=== PATIENT | male | born 1985 | race Hispanic/Latino ===

== ENCOUNTER 2019-03-20 17:27 | Observation (INO) | payer BC ==
[2019-03-20] MEDS ORDERED: FENTANYL CITR 100 MCG/2 ML ONE ×2 (19:50→21:35)
[2019-03-20] MEDS ORDERED: ONDANSETRON 4 MG/2 ML VIAL ONE (19:50)
[2019-03-20 19:57] LABS: Protime INR 1.06
--- NOTE | 2019-03-20 20:12 | RAD REPORT ---
EXAM DESCRIPTION: CT - Head Brain Wo Cont - 03/20/2019 7:50 pm CLINICAL HISTORY: Persistent headache, photophobia COMPARISON: None. TECHNIQUE: Axial 5 mm thick images of the head were obtained without IV contrast. All CT scans are performed using dose optimization technique as appropriate and may include automated exposure control or mA/KV adjustment according to patient size. FINDINGS: No intracranial hemorrhage, mass, edema or shift of mid-line structures. No acute infarcti on changes seen. No abnormal extra-axial fluid collections. Ventricles are normal. Mastoid air cells are clear. No acute sinus finding. No acute bony findings. IMPRESSION: Negative non-contrast CT head examination for acute or significant finding.
[2019-03-20 20:16] LABS: ALT/SGPT 37 U/L (12-78); AST/SGOT 15 U/L (15-37); Albumin 4.3 g/dL (3.4-5.0); Alkaline Phosphatase 69 U/L (45-117); BUN Blood Urea Nitrogen 13 mg/dL (7-18); Bicarbonate 25 mmol/L (21-32); Bilirubin Direct < 0.1 mg/dL (0-0.2); Bilirubin Total 0.3 mg/dL (0.2-1.0); Glucose Level 91 mg/dL (74-106); Protein, Total 8.4 g/dL (6.4-8.2); Sodium Level 139 mmol/L (136-145)
[2019-03-20] MEDS ORDERED: PROMETHAZINE 25 MG/ML VIAL ONE (20:33)
[2019-03-20] MEDS ORDERED: NA CHLORIDE 0.9% 50 ML IV ONE (20:33)
[2019-03-20] MEDS ORDERED: NA CHLORIDE 0.9% 1,000 ML ONE (20:55)
[2019-03-20 21:59] LABS: Appearance SLT. TURBID (CLEAR); Body Fluid Source CSF; Color of fluid Pink (COLORLESS); Fluid Total Volume 9 ml
[2019-03-20 22:05] LABS: CSF Glucose 54 mg/dL (40-70)
[2019-03-20 22:21] LABS: Body Fluid WBC 38 /mm^3
[2019-03-20 22:45] LABS: Appearance CLEAR (CLEAR); Body Fluid Source CSF; Color of fluid Colorless (COLORLESS)
[2019-03-20 22:54] LABS: Body Fluid WBC 36 /mm^3
--- NOTE | 2019-03-20 23:22 | EDPHYS ---
Physician Documentation [facility] Name: Miguel Angel Estes Age: 33 yrs Sex: Male : 1985 Arrival Date: 03/20/2019 Time: 17:28 Bed 28 Private MD: ED Physician Lincoln Plasencia HPI: 03/20 19:29 This 33 yrs old Male presents to ER via Ambulatory with complaints of Headache.wa 19:29 The patient complains of pain to the generalized. The patient describes the headache as wa constant, throbbing, unrelenting, sudden onset. Onset: The symptoms/episode began/occurred 3 day(s) ago. Associated signs and symptoms: Pertinent positives: dizziness, fever, of the diffuse, malaise, nausea, neck stiffness, Photophobia vomiting, weakness, Pertinent negatives: paresthesias, vision loss. Severity of symptoms: At its worst the pain was severe, in the emergency department the pain is actually worse, markedly. Headache History: Denies prior headaches. The symptoms are alleviated by nothing. the symptoms are aggravated by lights. The patient has not experienced similar symptoms in the past. The patient has not recently seen a physician. sudden onset PANDEY Thursday after work. assoc with vomiting, photophobia and neck discomfort. denies h/o same in the past. . Historical: - Allergies: 17:56 No Known Allergies; hb - Home Meds: 17:56 None [Active]; hb - PMHx: 17:56 None; hb - PSHx: 17:56 None; hb - Immunization history:: Adult Immunizations up to date. - Social history:: Smoking status: Patient uses tobacco products, smokes one-half pack cigarettes per day. - Ebola Screening: : No symptoms or risks identified at this time. - Family history:: not pertinent. - Hospitalizations: : No recent hospitalization is reported. ROS: 19:32 Eyes: Negative for injury, pain, redness, and discharge, ENT: Negative for injury, wa pain, and discharge, Cardiovascular: Negative for chest pain, palpitations, and edema, Respiratory: Negative for shortness of breath, cough, wheezing, and pleuritic chest pain, Back: Negative for injury and pain, : Negative for injury, bleeding, discharge, and swelling, MS/Extremity: Negative for injury and deformity, Skin: Negative for injury, rash, and discoloration. 19:32 Constitutional: Positive for chills, fever, malaise. 19:32 Neck: Positive for pain at rest, Negative for injury or acute deformity, mass. 19:32 Abdomen/GI: Positive for nausea and vomiting, Negative for abdominal pain. 19:32 Neuro: Positive for dizziness, headache, visual changes. 19:32 All other systems are negative. Exam: 19:33 Head/Face: Normocephalic, atraumatic. Eyes: Pupils equal round and reactive to light, wa extra-ocular motions intact. Lids and lashes normal. Conjunctiva and sclera are non-icteric and not injected. Cornea within normal limits. Periorbital areas with no swelling, redness, or edema. ENT: Nares patent. No nasal discharge, no septal abnormalities noted. Tympanic membranes are normal and external auditory canals are clear. Oropharynx with no redness, swelling, or masses, exudates, or evidence of obstruction, uvula midline. Mucous membranes moist. Neck: Trachea midline, no thyromegaly or masses palpated, and no cervical lymphadenopathy. Supple, full range of motion without nuchal rigidity, or vertebral point tenderness. No Meningismus. Cardiovascular: Regular rate and rhythm with a normal S1 and S2. No gallops, murmurs, or rubs. Normal PMI, no JVD. No pulse deficits. Respiratory: Lungs have equal breath sounds bilaterally, clear to auscultation and percussion. No rales, rhonchi or wheezes noted. No increased work of breathing, no retractions or nasal flaring. Abdomen/GI: Soft, non-tender, with normal bowel sounds. No distension or tympany. No guarding or rebound. No evidence of tenderness throughout. Back: No spinal tenderness. No costovertebral tenderness. Full range of motion. Skin: Warm, dry with normal turgor. Normal color with no rashes, no lesions, and no evidence of cellulitis. MS/ Extremity: Pulses equal, no cyanosis. Neurovascular intact. Full, normal range of motion. 19:33 Constitutional: The patient appears noted in discomfort. vomiting 19:33 Neuro: Orientation: is normal, Mentation: is normal, Cranial nerves: grossly normal, Motor: is normal, grossly nml neuro. exam difficult at best as pt noted discomfort and as such with decrease corporation . Vital Signs: 17:56 BP 179 / 101; Pulse 68; Resp 16; Temp 98.9; Pulse Ox 99% on R/A; Weight 122 kg; Height hb 5 ft. 7 in. (170.18 cm); Pain 9/10; 19:10 BP 145 / 98; Pulse 70; Resp 18; Pulse Ox 97% ; ea 20:11 BP 136 / 99; Pulse 58; Resp 18; Pulse Ox 99% ; ea 20:45 BP 135 / 96; Pulse 58; Resp 19 S; Pulse Ox 98% ; jp3 21:30 BP 129 / 92; Pulse 73; Resp 20; Pulse Ox 95% ; rv 22:15 BP 118 / 98; Pulse 59; Resp 20; Pulse Ox 99% ; rv 23:00 BP 128 / 92; Pulse 59; Resp 20; Temp 98.4; Pulse Ox 99% ; rv 23:45 BP 133 / 100; Pulse 63; Resp 18; Pulse Ox 97% ; rv 03/21 01:00 BP 121 / 87; Pulse 66; Resp 19; Temp 98.1; Pulse Ox 97% ; rv 03/20 17:56 Body Mass Index 42.13 (122.00 kg, 170.18 cm) hb Procedures: 03/20 21:43 Lumbar Puncture: Patient placed in sitting position. Prepped with Betadine. Draped wa using sterile technique. Collected 25 ml's of clear fluid. Sample sent to lab. Puncture site dressed with band aid, Patient tolerated well. MDM: 19:03 Patient medically screened. wa 19:36 Differential diagnosis: intracerebral hemorrhage, meningitis, meningoencephalitis, wa migraine, subarachnoid bleed, tension headache. Special discussion: worrisome PANDEY presentation in apt with no h/o. needs r/o acute intracranial process such as mass, bleed, infection. 21:40 Data reviewed: vital signs, nurses notes, lab test result(s), radiologic studies. Test wa interpretation: by ED physician or midlevel provider: labs noted wnl. UA pending. Head CT noted nml. Response to treatment: improved initially with IV fentanyl. c/o nausea. phenergan administered with relief. PANDEY returned. another dose fentanyl given right prior to LP. tolerated LP well. pt obese. had to sit up as such inaccurate pressure reads. CSF fluid noted blood-tinged initially but cleared to colorless immediately. will monitor and await results. 23:16 Test interpretation: by ED physician or midlevel provider: CSF noted with nml glucose. de elevated wbc at 38 with lymphocytic predominance. . Physician consultation: Keri Thorpe MD was called at 23:19. ED course: pt still requiring pain meds intermittently. note acute meningitis with lymphocytic predominance. possibly of viral etiology. will given 1st dose of abx however. consider viral PCR. acyclovir?. 03/20 19:28 Order name: UDS 03/20 19:28 Order name: Basic Metabolic Panel de 03/20 19:28 Order name: Hepatic Function 03/20 19:28 Order name: Protime (+inr) de 03/20 19:28 Order name: CSF Bacterial Antigens (tube 1); Complete Time: 22:53 de 03/20 19:28 Order name: Csf Culture de 03/20 19:28 Order name: Fluid Cell Count,Body; Complete Time: 23:02 de 03/20 19:28 Order name: Spinal Fluid Profile; Complete Time: 22:53 de 03/20 19:30 Order name: Urine Drug Screen; Complete Time: 00:54 EDVT 03/20 19:31 Order name: Basic Metabolic Panel; Complete Time: 20:31 EDMS 03/20 19:31 Order name: Liver (Hepatic) Function; Complete Time: 20:30 EDVT 03/20 19:31 Order name: Protime (+INR); Complete Time: 20:30 EDVT 03/20 22:57 Order name: CSF Total Protein; Complete Time: 23:26 EDVT 03/20 23:58 Order name: Urine Dipstick--Ancillary (enter results) [facility] 03/20 19:28 Order name: CT Head Brain wo Cont; Complete Time: 20:30 de 03/20 19:28 Order name: Cardiac monitoring; Complete Time: 20:08 de 03/20 19:28 Order name: IV Saline Lock; Complete Time: 19:51 de 03/20 19:28 Order name: Labs collected and sent; Complete Time: 20:08 de 03/21 00:00 Order name: Urine Microscopic Only; Complete Time: 00:54 cm6 03/21 00:32 Order name: Regular EDMS 03/21 00:54 Order name: CBC with Diff de 03/20 19:28 Order name: NPO; Complete Time: 20:08 03/20 19:28 Order name: O2 Sat Monitoring; Complete Time: 19:51 de 03/20 19:28 Order name: Urine Dipstick-Ancillary (obtain specimen); Complete Time: 00:06 03/20 19:28 Order name: LP Consents; Complete Time: 19:51 de 03/20 19:28 Order name: LP Setup; Complete Time: 19:51 de Administered Medications: 10/11 23:50 Drug: Acyclovir 1000 mg Route: IVPB; Site: right antecubital; rv 03/20 19:38 Drug: fentaNYL (PF) 75 mcg Route: IVP; Site: left antecubital; rv 21:52 Follow up: Response: Pain is decreased rv 19:38 Drug: Zofran 4 mg Route: IVP; Site: left antecubital; rv 21:52 Follow up: Response: No adverse reaction rv 20:29 Drug: Phenergan 12.5 mg Route: IVP; Site: left antecubital; ea 21:52 Follow up: Response: No adverse reaction rv 20:40 Drug: NS 0.9% 1000 ml Route: IV; Rate: 1 bolus; Site: left antecubital; rv 21:53 Follow up: IV Status: Completed infusion; IV Intake: 1000ml rv 21:30 Drug: fentaNYL (PF) 75 mcg Route: IVP; Site: left antecubital; rv 22:00 Follow up: Response: Pain is decreased rv 22:15 Drug: Rocephin - (cefTRIAXone) 2 grams Route: IVPB; Infused Over: 30 mins; Site: left rv antecubital; 23:32 Follow up: IV Status: Completed infusion; IV Intake: 100ml rv 23:34 Drug: vancoMYCIN 2 grams Route: IVPB; Rate: calculated rate; Site: left antecubital; rv 23:34 Drug: TORadol 30 mg Route: IVP; Site: left antecubital; rv 23:59 Follow up: Response: Pain is decreased rv Disposition: 03/20/19 23:21 Hospitalization ordered by Keri Thorpe for Observation. Preliminary diagnosis are Acute Headache, Acute Meningitis. - Bed requested for Telemetry/MedSurg (observation). - Status is Observation. rv - Condition is Stable. - Problem is new. - Symptoms have improved. UTI on Admission? No Critical care time excluding procedures: 23:19 Critical care time: Bedside Care: 15 minutes, Consultation: 5 minutes, Family wa Intervention: 10 minutes. Total time: 30 minutes Signatures: Dispatcher [employer] EDHerminia Fowler RN Tosha Zhao, RN Amisha Rice RN RN ea Appiah, William, MD MD wa Vicente, Ronaldo, RN RN rv Corrections: (The following items were deleted from the chart) 03/21 00:39 03/20 23:21 Hospitalization Ordered by Keri Thorpe MD for Observation. Preliminary mw diagnosis is Acute Headache; Acute Meningitis. Bed requested for Telemetry/MedSurg (observation). Status is Observation. Condition is Stable. Problem is new. Symptoms have improved. UTI on Admission? No. de 03/21 01:08 00:39 03/20/2019 23:21 Hospitalization Ordered by Keri Thorpe MD for Observation. rv Preliminary diagnosis is Acute Headache; Acute Meningitis. Bed requested for Telemetry/MedSurg (observation). Status is Observation. Condition is Stable. Problem is new. Symptoms have improved. UTI on Admission? No. mw
--- NOTE | 2019-03-20 23:22 | ER ---
Nurse's Notes [facility] Name: Miguel Angel Estes Age: 33 yrs Sex: Male : 1985 Arrival Date: 03/20/2019 Time: 17:28 Bed 28 Private MD: Diagnosis: Acute Headache;Acute Meningitis Presentation: 03/20 17:54 Presenting complaint: Headache x 3 days. Also reports nausea, photosensitivity, and hb subjective fever. Vomited x 2 yesterday. Transition of care: patient was not received from another setting of care. Onset of symptoms was March 18, 2019. Risk Assessment: Do you want to hurt yourself or someone else? Patient reports no desire to harm self or others. Care prior to arrival: None. 17:54 Method Of Arrival: Ambulatory hb 17:54 Acuity: ARMEN 3 hb 19:09 Initial Sepsis Screen: Does the patient meet any 2 criteria? No. Patient's initial ea sepsis screen is negative. Does the patient have a suspected source of infection? No. Patient's initial sepsis screen is negative. Triage Assessment: 19:08 Headache History: The patient has had previous headaches and this one is similar to ea previous episodes. General: Appears uncomfortable, Behavior is appropriate for age. Pain: Complains of pain in face and left cheek and right cheek and forehead. 20:00 Pain: Pain currently is 10 out of 10 on a pain scale. Pain began gradually, Also rv complains of photophobia. Historical: - Allergies: 17:56 No Known Allergies; hb - Home Meds: 17:56 None [Active]; hb - PMHx: 17:56 None; hb - PSHx: 17:56 None; hb - Immunization history:: Adult Immunizations up to date. - Social history:: Smoking status: Patient uses tobacco products, smokes one-half pack cigarettes per day. - Ebola Screening: : No symptoms or risks identified at this time. - Family history:: not pertinent. - Hospitalizations: : No recent hospitalization is reported. Screenin:08 Abuse screen: Denies threats or abuse. Nutritional screening: No deficits noted. ea Tuberculosis screening: No symptoms or risk factors identified. Fall Risk None identified. Assessment: 19:06 General: Appears uncomfortable, Behavior is calm, cooperative, appropriate for age. ea Pain: Complains of pain in forehead, right cheek and left cheek. Neuro: Level of Consciousness is awake, alert, obeys commands, Oriented to person, place, time, situation. Cardiovascular: Patient's skin is warm and dry. Respiratory: Airway is patent Respiratory effort is even, unlabored, Respiratory pattern is regular, symmetrical. GI: Parent/caregiver reports the patient having nausea. EENT: Parent/caregiver reports the patient having nasal congestion. Derm: Skin is pale. 20:10 Reassessment: Patient and/or family updated on plan of care and expected duration. Pain ea level reassessed. Patient is alert, oriented x 3, equal unlabored respirations, skin warm/dry/pink. 23:35 Reassessment: Patient appears in no apparent distress at this time. Patient and/or rv family updated on plan of care and expected duration. Pain level reassessed. Patient is alert, oriented x 3, equal unlabored respirations, skin warm/dry/pink. after the 1st dose of Fentanyl, patient complained again of headache. referred to Dr Plasencia. given 2nd dose of Fentanyl right before the spinal tap. patient complained again of headache after 1 hours post procedure. given Toradol as ordered by Dr Plasencia. Vital Signs: 17:56 BP 179 / 101; Pulse 68; Resp 16; Temp 98.9; Pulse Ox 99% on R/A; Weight 122 kg; Height hb 5 ft. 7 in. (170.18 cm); Pain 9/10; 19:10 BP 145 / 98; Pulse 70; Resp 18; Pulse Ox 97% ; ea 20:11 BP 136 / 99; Pulse 58; Resp 18; Pulse Ox 99% ; ea 20:45 BP 135 / 96; Pulse 58; Resp 19 S; Pulse Ox 98% ; jp3 21:30 BP 129 / 92; Pulse 73; Resp 20; Pulse Ox 95% ; rv 22:15 BP 118 / 98; Pulse 59; Resp 20; Pulse Ox 99% ; rv 23:00 BP 128 / 92; Pulse 59; Resp 20; Temp 98.4; Pulse Ox 99% ; rv 23:45 BP 133 / 100; Pulse 63; Resp 18; Pulse Ox 97% ; rv 03/21 01:00 BP 121 / 87; Pulse 66; Resp 19; Temp 98.1; Pulse Ox 97% ; rv 03/20 17:56 Body Mass Index 42.13 (122.00 kg, 170.18 cm) hb ED Course: 03/20 17:28 Patient arrived in ED. mr 17:55 Triage completed. hb 17:57 Arm band placed on. hb 18:[address], RN is Primary Nurse. rv 19:03 Lincoln Plasencia MD is Attending Physician. wa 19:09 Patient has correct armband on for positive identification. Bed in low position. Call ea light in reach. Side rails up X2. 19:24 Inserted saline lock: 20 gauge in left antecubital area, using aseptic technique. ea 19:50 CT completed. Patient tolerated procedure well. Patient moved back from CT. bq 19:51 CT Head Brain wo Cont In Process Unspecified. EDMS 21:48 Assist provider with lumbar puncture: Set up LP tray. Performed by Lincoln Plasencia MD rv CSF is clear. Puncture site dressed with band aid, Procedure was successful. Patient tolerated well. patient put on supine position, flat on bed after the procedure. instructions given post procedure. 21:49 CSF sample taken to lab by CANDIDA Uriarte. rv 23:20 Keri Thorpe MD is Hospitalizing Provider. co 03/21 00:06 UDS Sent. rv 00:06 Basic Metabolic Panel Sent. rv 00:06 Hepatic Function Sent. rv 00:06 Protime (+inr) Sent. rv 01:02 Patient admitted, IV remains in place. rv Administered Medications: 10/11 23:50 Drug: Acyclovir 1000 mg Route: IVPB; Site: right antecubital; rv 03/20 19:38 Drug: fentaNYL (PF) 75 mcg Route: IVP; Site: left antecubital; rv 21:52 Follow up: Response: Pain is decreased rv 19:38 Drug: Zofran 4 mg Route: IVP; Site: left antecubital; rv 21:52 Follow up: Response: No adverse reaction rv 20:29 Drug: Phenergan 12.5 mg Route: IVP; Site: left antecubital; ea 21:52 Follow up: Response: No adverse reaction rv 20:40 Drug: NS 0.9% 1000 ml Route: IV; Rate: 1 bolus; Site: left antecubital; rv 21:53 Follow up: IV Status: Completed infusion; IV Intake: 1000ml rv 21:30 Drug: fentaNYL (PF) 75 mcg Route: IVP; Site: left antecubital; rv 22:00 Follow up: Response: Pain is decreased rv 22:15 Drug: Rocephin - (cefTRIAXone) 2 grams Route: IVPB; Infused Over: 30 mins; Site: left rv antecubital; 23:32 Follow up: IV Status: Completed infusion; IV Intake: 100ml rv 23:34 Drug: vancoMYCIN 2 grams Route: IVPB; Rate: calculated rate; Site: left antecubital; rv 23:34 Drug: TORadol 30 mg Route: IVP; Site: left antecubital; rv 23:59 Follow up: Response: Pain is decreased rv Intake: 21:53 IV: 1000ml; Total: 1000ml. rv 23:32 IV: 100ml; Total: 1100ml. rv Outcome: 23:21 Decision to Hospitalize by Provider. co 03/21 01:00 Admitted to Med/surg accompanied by nurse, via stretcher, room 222, with chart, Report rv called to mounika butcher Condition: stable Instructed on the need for admit. 01:08 Patient left the ED. rv Signatures: Dispatcher [employer] EDMN JaimeJyotsna mr TabathaLexie Heather, RN RN hb Antunez, Elena, RN RN ea Appiah, William, MD MD wa Vicente, Ronaldo, RN RN Aston Lozano jp3
[2019-03-20] MEDS ORDERED: NA CHLORIDE 0.9% 100 ML IV ONE (23:26)
[2019-03-20] MEDS ORDERED: NA CHLORIDE 0.9% 250 ML ONE (23:26)
[2019-03-20] MEDS ORDERED: CEFTRIAXONE 1000 MG/VIAL ONE (23:26)
[2019-03-20] MEDS ORDERED: VANCOMYCIN 1 GM/VIAL ONE (23:26)
[2019-03-20] MEDS ORDERED: KETOROLAC 30 MG/ML INJ ONE (23:30)
[2019-03-20] MEDS ORDERED: NA CHLORIDE 0.9% 500 ML ONE (23:38)
[2019-03-20] MEDS ORDERED: ACYCLOVIR NA 500 MG/VIAL IVPB ONE (23:49)
[2019-03-21 00:07] LABS: Urine Blood TRACE (NEG); Urine Glucose NEGATIVE (NEG); Urine Specific Gravity 1.025 (1.005-1.030)
[2019-03-21 00:08] LABS: Urine Protein 1+ (NEG)
[2019-03-21 00:12] LABS: Urine Bacteria <20 /HPF (NONE SEEN); Urine Culture Reflex Order NOT NEEDED; Urine RBC <5 /HPF (NONE SEEN)
[2019-03-21] MEDS ORDERED: ACETAMINOPHEN 500 MG TAB PO PRN (00:18)
[2019-03-21] MEDS ORDERED: ALPRAZOLAM 0.25 MG TABLET PO PRN (00:18)
[2019-03-21] MEDS ORDERED: ONDANSETRON 4 MG/2 ML VIAL IV PRN (00:18)
[2019-03-21 00:20] LABS: Barbiturates NEGATIVE (NEGATIVE); Benzodiazepines NEGATIVE (NEGATIVE); Cocaine NEGATIVE (NEGATIVE); METHAMPHETAM NEGATIVE (NEGATIVE); Methadone NEGATIVE (NEGATIVE); Opiates NEGATIVE (NEGATIVE); Phencyclidine NEGATIVE (NEGATIVE); THC Cannibis NEGATIVE (NEGATIVE)
[2019-03-21] MEDS: NA CHLORIDE 0.9% 1,000 ML IV SCH ×2 (01:00→14:20)
[2019-03-21 01:07] LABS: Absolute Lymphocytes (CBC) 1.4 K/uL (0.7-4.9); Absolute Monocytes 0.3 K/uL (0.1-1.3); Absolute Neutrophil 4.7 K/uL (1.8-8.0); Basophils % 2.6 % (0-1.3); Eosinophils % 0.4 % (0-4.4); Hematocrit 41.3 % (39.6-49.0); Lymphocytes % 21.9 % (15.3-44.8); MPV 10.1 fL (7.6-11.3); Monocytes % 4.1 % (3.3-12.3); RBC Red Blood Cell Count 4.83 M/uL (4.33-5.43)
--- NOTE | 2019-03-21 07:50 | P.HP ---
Certification for Inpatient Patient admitted to: Inpatient With expected LOS: >2 Midnights Patient will require the following post-hospital care: None Practitioner: I am a practitioner with admitting privileges, knowledge of patient current condition, hospital course, and medical plan of care. Services: Services provided to patient in accordance with Admission requirements found in Title 42 Section 412.3 of the Code of Federal Regulations Patient History Date of Service: 03/20/19 Reason for admission: Viral meningitis History of Present Illness: Patient is a 33-year-old gentleman who came to the hospital with a headache along with photophobia. This is been going on for the last few days. Symptoms have gradually worsened. Patient also had meningismus. Patient came into the ER for evaluation. Patient had a lumbar puncture performed which revealed that patient had elevated white blood cell count. Patient most likely has a viral meningitis. There is no significant elevation in the protein level. There is no other abnormality to indicate that patient has a bacterial meningitis. There is a lymphocyte predominance. CT scan of the head was negative. MRI of the brain is pending. Will wait for further diagnostic studies but at this time will think patient can come off of isolation. Allergies No Known Allergies Allergy (Verified 03/21/19 00:52) Home Medications: NK [No Home Meds] 03/21/19 - Past Medical/Surgical History Has patient received pneumonia vaccine in the past: No Diabetic: No Past Medical History: Unable to obtain Past Surgical History: Unable to obtain - Family History Father Family History: Reviewed- Non-Contributory - Social History Smoking Status: Current some day smoker Alcohol use: No CD- Drugs: No Caffeine use: Yes Place of Residence: Home Review of Systems 10-point ROS is otherwise unremarkable Physical Examination - Vital Signs Temperature: 98.5 F Blood Pressure: 139/86 Pulse: 60 Respirations: 20 Pulse Ox (%): 97 - Physical Exam General: Alert, In no apparent distress, Oriented x3 HEENT: Atraumatic, PERRLA, Mucous membr. moist/pink, EOMI, Sclerae nonicteric Neck: Supple, 2+ carotid pulse no bruit, No LAD, Without JVD or thyroid abnormality Respiratory: Clear to auscultation bilaterally, Normal air movement Cardiovascular: Regular rate/rhythm, Normal S1 S2 Gastrointestinal: Normal bowel sounds, Soft and benign, Non-distended, No tenderness Musculoskeletal: No clubbing, No swelling, No tenderness Integumentary: No rashes Neurological: Normal gait, Normal speech, Normal strength at 5/5 x4 extr, Normal tone, Sensation intact, Cranial nerves 3-12 intact, Normal affect Lymphatics: No axilla or inguinal lymphadenopathy - Studies Laboratory Data (last 24 hrs) 03/20/19 19:30: PT 12.5, INR 1.06 03/20/19 19:30: Sodium 139, Potassium 4.0, BUN 13, Creatinine 0.95, Glucose 91, Total Bilirubin 0.3, AST 15, ALT 37, Alkaline Phosphatase 69 Microbiology Data (last 24 hrs): 03/20/19 21:37 Cerebral Spinal Fluid CSF Bacterial Antigens (Tube 1) - Final Assessment & Plan - Problems (Diagnosis) (1) Viral meningitis, unspecified Current Visit: Yes Status: Acute - Plan Plan: 1. Aggressive IV hydration 2. Will continue with IV antibiotics 3. Wait for cultures from CSF 4. Monitor electrolytes closely 5. MRI of the brain 6. HSV titers if indicated; patient is little somnolent at this time. He does wake up and answer all my questions. However, if he does become encephalopathic I think it would be prudent to check his HSV titers. 7. GI and DVT prophylaxis Discharge Plan: Home Plan to discharge in: Greater than 2 days - Advance Directives Does patient have a Living Will: No Does patient have a Durable POA for Healthcare: No - Code Status/Comfort Care Code Status Assessed: Yes Code Status: Full Code Critical Care: No Time Spent Managing PTS Care (In Minutes): 45
[2019-03-21] MEDS: CEFTRIAXONE/SWI 2gm 2 GM/20 ML SYR IV SCH ×2 (08:48→20:13)
[2019-03-21] MEDS: ENOXAPARIN 40 MG/0.4 ML SQ SCH (08:49)
[2019-03-21] MEDS ORDERED: CEFTRIAXONE 2,000 MG in NA CHLORIDE 0.9% 100 ML IV SCH (09:00)
--- NOTE | 2019-03-21 10:26 | RAD REPORT ---
EXAM DESCRIPTION: MRI - Brain Wo Cont - 03/21/2019 9:51 am CLINICAL HISTORY: Meningitis/alteration of consciousness COMPARISON: March 20 TECHNIQUE: Axial, sagittal, and coronal magnetic images of the brain were obtained. Contrast was not requested FINDINGS: No abnormal signal is present within the brain. Diffusion-weighted/ADC mapping does not reveal evidence of acute infarction. The ventricles are normal caliber. An extra-axial fluid collection is not present Mucus retention cyst right maxillary sinus IMPRESSION: No acute abnormality is displayed
[2019-03-21] MEDS ORDERED: TRAMADOL HCL 50 MG TAB PO PRN (13:37)
[2019-03-21] MEDS ORDERED: IBUPROFEN 400 MG TAB PO ONE (15:11)
--- NOTE | 2019-03-21 15:52 | P.PN ---
Subjective Date of Service: 03/21/19 Chief Complaint: Viral meningitis Patient seen and examined at bedside. No family at bedside. Chart reviewed and case discussed with nursing staff. Patient continues to be in [id number] pain, secondary to headache. Continues to complain of photophobia. Drowsy, though arousable. Review of Systems 10-point ROS is otherwise unremarkable Physical Examination - Vital Signs Temperature: 97 F Blood Pressure: 145/93 Pulse: 61 Respirations: 20 Pulse Ox (%): 94 - Physical Exam General: Alert, Oriented x3, Moderate distress, Other (Sleepy/drowsy but arousable) Neck: Supple, JVD not distended Respiratory: Clear to auscultation bilaterally, Normal air movement Cardiovascular: Regular rate/rhythm, Normal S1 S2 Gastrointestinal: Normal bowel sounds, No tenderness Integumentary: No rashes Neurological: Normal speech, Normal strength at 5/5 x4 extr, Normal tone, Sensation intact, Cranial nerves 3-12 intact - Studies Laboratory Data (last 24 hrs) 03/20/19 19:30: PT 12.5, INR 1.06 03/20/19 19:30: Sodium 139, Potassium 4.0, BUN 13, Creatinine 0.95, Glucose 91, Total Bilirubin 0.3, AST 15, ALT 37, Alkaline Phosphatase 69 Microbiology Data (last 24 hrs): 03/20/19 21:37 Cerebral Spinal Fluid Gram Stain - Final 03/20/19 21:37 Cerebral Spinal Fluid CSF Bacterial Antigens (Tube 1) - Final Assessment And Plan - Current Problems (Diagnosis) (1) Viral meningitis, unspecified Current Visit: Yes Status: Acute (2) Morbid obesity with BMI of 40.0-44.9, adult Current Visit: No Status: Chronic - Plan - continue with Aggressive IV hydration - Will continue with IV antibiotics at this time. If improved symptoms in mentation tomorrow, can discontinue IV antibiotics. - Wait for cultures from CSF, still pending. - Monitor electrolytes closely - MRI of the brain negative for any acute abnormalities. - HSV titers if indicated; patient is little somnolent at this time. He does wake up and answer all my questions. However, if he does become encephalopathic I think it would be prudent to check his HSV titers. - GI and DVT prophylaxis
[2019-03-21] MEDS: IBUPROFEN 400 MG TAB PO SCH (20:13)
[2019-03-22] MEDS: IBUPROFEN 400 MG TAB PO SCH ×2 (00:45→08:23)
[2019-03-22 06:21] LABS: Absolute Lymphocytes (CBC) 3.5 K/uL (0.7-4.9); Absolute Monocytes 0.5 K/uL (0.1-1.3); Absolute Neutrophil 2.9 K/uL (1.8-8.0); Basophils % 0.6 % (0-1.3); Eosinophils % 5.1 % (0-4.4); Hematocrit 40.7 % (39.6-49.0); Lymphocytes % 47.6 % (15.3-44.8); MPV 9.9 fL (7.6-11.3); Monocytes % 7.5 % (3.3-12.3); RBC Red Blood Cell Count 4.76 M/uL (4.33-5.43)
[2019-03-22 06:44] LABS: ALT/SGPT 33 U/L (12-78); AST/SGOT 12 U/L (15-37); Albumin 3.6 g/dL (3.4-5.0); Alkaline Phosphatase 59 U/L (45-117); BUN Blood Urea Nitrogen 11 mg/dL (7-18); Bicarbonate 28 mmol/L (21-32); Bilirubin Total 0.3 mg/dL (0.2-1.0); Glucose Level 87 mg/dL (74-106); Magnesium 2.4 mg/dL (1.8-2.4); Phosphorus 4.3 mg/dL (2.5-4.9); Potassium 4.3 mmol/L (3.5-5.1); Protein, Total 7.3 g/dL (6.4-8.2); Sodium Level 141 mmol/L (136-145)
[2019-03-22] MEDS: CEFTRIAXONE/SWI 2gm 2 GM/20 ML SYR IV SCH (08:23)
[2019-03-22] MEDS: ENOXAPARIN 40 MG/0.4 ML SQ SCH (08:24)
--- NOTE | 2019-03-22 23:12 | DS ---
Date of Discharge: 03/22/2019 Admitting Diagnosis: Viral meningitis. Discharge Diagnoses: 1.Viral meningitis. 2.Morbid obesity. Hospital Course: The patient is a 33-year-old male, who came into the hospital with severe headache, photophobia. The patient had a lumbar puncture done to rule out viral meningitis, which did not benton w any abnormalities, did show elevated protein, thought to be viral in nature. His headache improved . Imaging studies including head CT and MRI of the brain were negative. Therefore, ruled out any so rt of bleed or ischemic event. The patient's cultures were negative to date. His condition improved . Symptoms were resolved. He no longer had headache. No further photophobia. His mental status cl eared and he was then stable for discharge. The patient was then sent home in a stable condition. Activity: As tolerated. Medications: As per medication reconciliation list. Followup: Follow up with primary care physician in 2-3 days. Return to ER for worsening condition. Diet: Calorie restricted. Physical Examination: General: Awake, alert, oriented x3. No acute distress. CV: S1, S2. No murmurs. Respiratory: Moving air well bilaterally. No wheezing. Gastrointestinal: Abdomen is soft, nontender, nondistended. Positive bowel sounds. Extremities: No clubbing, cyanosis, edema. Neurologic: Nonfocal. Neck: Supple. No meningismus. No rigidity. SA/MODL Voice ID: [id number] Report ID: [id number]
== END 2019-03-22 12:10 | disposition home or self-care (01) ==
LOC: ER 17:27 → 2ND 03-21 00:20 → INTOOBSV 03-21 00:20
PROVIDERS: ADMIT Hospitalist; ATTEND Family Medicine
PROC: 009U3ZX Drainage of Spinal Canal, Percutaneous Approach, Diagnostic (ICD-10-PCS; principal; 2019-03-21)
DX: A87.9 Viral meningitis, unspecified (principal); E66.01 Morbid (severe) obesity due to excess calories; Z68.41 Body mass index [BMI] 40.0-44.9, adult; F17.210 Nicotine dependence, cigarettes, uncomplicated
CPT/HCPCS: 36415; 62270; 70450; 70551; 80048; 80053; 80076; 80307; 81003; 81015; 82945; 83735; 84100; 84157; 85025; 85610; 86403; 87070; 89050; 99285; G0378; J0133; J0696; J1650; J2405; J2550; J3010; J7030